=== PATIENT | male | born 1995 | race Caucasian/White ===

== ENCOUNTER 2021-07-30 08:22 | Emergency (ER) | payer OTHER ==
[~2021-07-30] VITALS: Ht 188 cm; Wt 87.0 kg
[2021-07-30] MEDS ORDERED: CEPH25SS PO (08:54)
[2021-07-30 09:39] VITALS: BP 110/65
== END 2021-07-30 09:42 | disposition home or self-care (01) ==
LOC: M ED 08:22
DX: Z48.00 Encounter for change or removal of nonsurgical wound dressing (principal); Z87.891 Personal history of nicotine dependence